=== PATIENT | female | born 1995 | race African-American/Black ===

== ENCOUNTER 2016-06-03 02:45 | Emergency (ER) | payer MEDICAID ==
[~2016-06-03] VITALS: Ht 160 cm; Wt 58.0 kg
[~2016-06-03 02:45] MED LIST: MACR100C2 PO; PERC5TAB12 PO
[2016-06-03 02:49] VITALS: BP 122/84; PULSE 91; RESP 18; TEMP 98.4; O2SAT 100
[2016-06-03] MEDS ORDERED: MORPHINE SULFATE 4 MG/ML INJ IV PUSH ONE (04:45)
[2016-06-03] MEDS ORDERED: ONDANSETRON HCL 4 MG/2 ML VIAL IV PUSH ONE (04:45)
[2016-06-03] MEDS ORDERED: SODIUM CHLOR 0.9% 1000 ML INJ 1,000 ML IV ONE (04:45)
[2016-06-03 04:50] LABS: AUTOMATED NEUTROPHIL # 2.5 TH/MM3 (1.8-7.7); BASOPHIL % 0.8 % (0.0-2.0); EOSINOPHIL % 0.7 % (0.0-4.0); HEMATOCRIT 36.1 % (35.0-46.0); HEMO FLAGS DIFF FINAL; LYMPHOCYTE # 2.1 TH/MM3 (1.0-4.8); MEAN CORPUSCULAR HEMOGLOBIN 28.6 PG (27.0-34.0); MEAN CORPUSCULAR HGB CONC 34.1 % (32.0-36.0); MONO % 6.7 % (0.0-8.0); NEUT % 49.8 % (16.0-70.0); PLATELET COUNT 241 TH/MM3 (150-450); RED CELL DISTRIBUTION WIDTH 13.1 % (11.6-17.2); RETIC % 1.3 % (0.4-3.0); REVIEW FLAG FINAL
[2016-06-03 05:04] LABS: BICARBONATE 25.8 MEQ/L (21.0-32.0); POTASSIUM 3.4 MEQ/L (3.5-5.1)
--- NOTE | 2016-06-03 05:10 | RADRPT ---
EXAM DATE/TIME: 06/03/2016 04:41 [place] COMPARISON: CHEST PA & LAT, April 24, 2016, 17:36. INDICATIONS : Chest pain. MEDICAL HISTORY : Sickle Cell disease. SURGICAL HISTORY : None. ENCOUNTER: Initial ACUITY: 1 day PAIN SCORE: 7/10 LOCATION: Bilateral chest FINDINGS: PA and lateral views of the chest demonstrate the lungs to be symmetrically aerated without evidence of mass, infiltrate or effusion. The cardiomediastinal contours are unremarkable. Osseous structure s are intact. CONCLUSION: No acute disease. Kenji Gaytan MD on June 03, 2016 at 5:08 Board Certified Radiologist. This report was verified electronically.
[2016-06-03 06:00] VITALS: BP 125/78; PULSE 84; RESP 18; O2SAT 100
[2016-06-03] MEDS ORDERED: oxyCODONE/ACETAMINOPHEN 5 MG/325 MG TAB PO ONE (06:30)
--- NOTE | 2016-06-03 06:45 | PD ---
HPI Chief Complaint: Sickle Cell Time Seen by Provider: 04:16 Travel History International Travel<30 days: No Contact w/Intl Traveler<30days: No Traveled to known affect area: No History of Present Illness HPI Patient is a 20-year-old female with history of sickle cell disease, who comes in complaining of pain to her left side as well as her arm and leg. She says the pain is typical of her sickle cell pain. She does not have a bracelet former, and does not have any pain medicine at home. She denies fever or chills. Does say she has some chest pain. PFSH Past Medical History Diminished Hearing: No Immunizations Current: Yes Sickle Cell Disease: Yes (Sickle Cell) ?: Not LMP: LAST WK : 0 Past Surgical History Surgical History: No Previous Surgery Social History Alcohol Use: No Tobacco Use: No (never) Substance Use: No Allergies-Medications (Allergen,Severity, Reaction): Coded Allergies: Toradol (Verified Allergy, Severe, SOB AND THROAT SWELLING, 06/03/16) Reported Meds & Prescriptions Reported Meds & Active Scripts Active Cipro (Ciprofloxacin HCl) 500 Mg Tab 500 Mg PO BID 5 Days Macrobid (Nitrofurantoin Monoh/Nitrofur Macro) 100 Mg Cap 100 Mg PO BID 5 Days Percocet (Oxycodone-Acetaminophen) 5-325 mg Tab 1 Tab PO Q6H PRN Percocet (Oxycodone-Acetaminophen) 5-325 mg Tab 1 Tab PO Q6H PRN Review of Systems Except as stated in HPI: all other systems reviewed are Neg General / Constitutional: No: Fever, Chills HENT: No: Headaches, Lightheadedness Cardiovascular: Positive: Chest Pain or Discomfort Respiratory: No: Cough, Shortness of Breath Gastrointestinal: No: Nausea, Vomiting, Abdominal Pain Musculoskeletal: Positive: Myalgias Skin: No Rash, No Change in Pigmentation Neurologic: No: Weakness, Dizziness Physical Exam Narrative GENERAL: Awake and alert in no acute distress. SKIN: Warm and dry. HEAD: Atraumatic. Normocephalic. EYES: Pupils equal and round. No scleral icterus. ENT: Mucous membranes pink and moist. NECK: Trachea midline. No JVD. CARDIOVASCULAR: Regular rate and rhythm. No murmur appreciated. RESPIRATORY: No accessory muscle use. Clear to auscultation. Breath sounds equal bilaterally. GASTROINTESTINAL: Abdomen soft, non-tender, nondistended. MUSCULOSKELETAL: No obvious deformities. No clubbing. No cyanosis. No edema. NEUROLOGICAL: Awake and alert. No obvious cranial nerve deficits. Motor grossly within normal limits. Normal speech. PSYCHIATRIC: Appropriate mood and affect; insight and judgment normal. Data Data Last Documented VS Vital Signs Date Time Temp Pulse Resp B/P Pulse Ox O2 Delivery O2 Flow Rate FiO2 06/03/16 06:00 84 18 125/78 100 Room Air 06/03/16 02:49 98.4 Orders Complete Blood Count With Diff (06/03/16 04:34) Basic Metabolic Panel (Bmp) (06/03/16 04:34) Ed Urine Pregnancytest Poc (06/03/16 04:34) Urinalysis - C+S If Indicated (06/03/16 04:34) Chest, Pa & Lat (06/03/16 ) Retic Count (06/03/16 04:34) Sodium Chlor 0.9% 1000 Ml Inj (Ns 1000 M (06/03/16 04:45) Ondansetron Inj (Zofran Inj) (06/03/16 04:45) Morphine Inj (Morphine Inj) (06/03/16 04:45) Oxycodone-Acetamin 5-325 Mg (Percocet (06/03/16 06:30) Urine Culture (06/03/16 06:40) Labs Laboratory Tests Test 06/03/16 06/03/16 04:30 06:40 White Blood Count 5.0 TH/MM3 Red Blood Count 4.30 MIL/MM3 Hemoglobin 12.3 GM/DL Hematocrit 36.1 % Mean Corpuscular Volume 84.0 FL Mean Corpuscular Hemoglobin 28.6 PG Mean Corpuscular Hemoglobin 34.1 % Concent Red Cell Distribution Width 13.1 % Platelet Count 241 TH/MM3 Mean Platelet Volume 8.2 FL Neutrophils (%) (Auto) 49.8 % Lymphocytes (%) (Auto) 42.0 % Monocytes (%) (Auto) 6.7 % Eosinophils (%) (Auto) 0.7 % Basophils (%) (Auto) 0.8 % Neutrophils # (Auto) 2.5 TH/MM3 Lymphocytes # (Auto) 2.1 TH/MM3 Monocytes # (Auto) 0.3 TH/MM3 Eosinophils # (Auto) 0.0 TH/MM3 Basophils # (Auto) 0.0 TH/MM3 CBC Comment DIFF FINAL Differential Comment Reticulocyte Count 1.3 % Absolute Reticulocyte Count 55.3 MIL/L Sodium Level 140 MEQ/L Potassium Level 3.4 MEQ/L Chloride Level 108 MEQ/L Carbon Dioxide Level 25.8 MEQ/L Anion Gap 6 MEQ/L Blood Urea Nitrogen 7 MG/DL Creatinine 0.68 MG/DL Estimat Glomerular Filtration 133 ML/MIN Rate Random Glucose 80 MG/DL Calcium Level 9.4 MG/DL Urine Color YELLOW Urine Turbidity HAZY Urine pH 6.0 Urine Specific [place] 1.014 Urine Protein NEG mg/dL Urine Glucose (UA) NEG mg/dL Urine Ketones NEG mg/dL Urine Occult Blood MOD Urine Nitrite NEG Urine Bilirubin NEG Urine Urobilinogen 2.0 MG/DL Urine Leukocyte Esterase LARGE Urine RBC 5 /hpf Urine WBC 15 /hpf Urine Squamous Epithelial 5 /hpf Cells Urine Amorphous Sediment RARE Urine Bacteria OCC /hpf Urine Mucus FEW /lpf Microscopic Urinalysis Comment CULTURE INDICATED MDM Medical Decision Making Medical Screen Exam Complete: Yes Emergency Medical Condition: Yes Medical Record Reviewed: Yes Differential Diagnosis Sickle cell crisis versus anemia versus electrolyte abnormality versus infection Narrative Course Patient is a 20-year-old female comes in complaining of sickle cell pain. Exam shows no acute abnormalities. IV established, labs sent. Labs are all within normal limits. Chest x-ray performed shows no acute abnormalities. Urinalysis is positive for infection. Patient given morphine as well as IV fluids. She reports some improvement of symptoms, however she says she is still having pain. Given second dose of morphine. Patient discharged home with prescription for a few Percocet. She is advised to obtain a bracelet former and follow-up with her doctor. Advised to return to the ED as needed for any worsening symptoms. Diagnosis Primary Impression: Sickle cell anemia Qualified Code: D57.00 - Hb-SS disease with crisis Patient Instructions: General Instructions, Sickle Cell Crisis (ED) Additional Instructions: Follow up with your doctors. Return to the ED as needed for any worsening symptoms. Scripts Ciprofloxacin (Cipro)500 Mg Lpb190 Mg PO BID 5 Days Ref 0 Prov:Kierra Del Cid MD 06/03/16 Nitrofurantoin Monohydrate Macrocrystals (Macrobid)100 Mg Pdr264 Mg PO BID 5 Days Ref 0 Prov:Kierra Del Cid MD 06/03/16 Oxycodone-Acetaminophen (Percocet)5-325 mg Tab1 Tab PO Q6H PRN (PAIN) #10 TAB Ref 0 Prov:Kierra Del Cid MD 06/03/16 Disposition: 01 DISCHARGE HOME Condition: Stable Kierra Del Cid MD Jun 03, 2016 06:45
[2016-06-03] MEDS ORDERED: PERC5TAB12 PO (06:48)
[2016-06-03 07:22] LABS: BACTERIA, URINE OCC /hpf; BLOOD, URINE MOD (NEG); COMMENT (UR) CULTURE INDICATED; CULTURE IF INDICATED CULTURE INDICATED; GLUCOSE,URINE NEG (NEG); KETONE, URINE NEG (NEG); MUCUS URINE FEW /lpf (OCC); NITRITE,URINE NEG (NEG); SQUAMOUS EPITHELIAL CELL URINE 5 /hpf (0-5); URINE COLOR YELLOW (YELLW/STRAW)
[2016-06-03] MEDS ORDERED: MACR100C2 PO (07:32)
[2016-06-03] MEDS ORDERED: CIPR-9 PO (07:36)
== END 2016-06-03 19:20 | disposition home or self-care (01) ==
LOC: NEPE 02:45
DX: D57.00 Hb-SS disease with crisis, unspecified (principal); R07.9 Chest pain, unspecified; R82.71 Bacteriuria
CPT/HCPCS: 71020; 80048; 81001; 85025; 85044; 87086; 96361; 96374; 96375; 99284; J2270; J2405; J7030

== ENCOUNTER 2016-06-16 21:07 | Emergency (ER) | payer MEDICAID ==
[~2016-06-16] VITALS: Ht 160 cm; Wt 58.0 kg
[~2016-06-16 21:07] MED LIST changes: +CIPR-9 PO
[2016-06-16 21:10] VITALS: BP 120/68; PULSE 113; RESP 15; TEMP 99.9; O2SAT 97
[2016-06-17] MEDS ORDERED: SODIUM CHLOR 0.9% 1000 ML INJ 1,000 ML IV ONE (00:05)
[2016-06-17] MEDS ORDERED: HYDROmorphone HCL PF 1 MG/ML VIAL IVS ONE (00:15)
[2016-06-17] MEDS ORDERED: SODIUM CHLORIDE 0.9% FLUSH 5 ML FLUSH IVF PRN (00:15)
[2016-06-17] MEDS ORDERED: ONDANSETRON HCL 4 MG/2 ML VIAL IVP ONE (00:15)
[2016-06-17 00:24] LABS: AUTOMATED NEUTROPHIL # 4.9 TH/MM3 (1.8-7.7); BASOPHIL % 0.5 % (0.0-2.0); EOSINOPHIL % 0.1 % (0.0-4.0); HEMATOCRIT 36.8 % (35.0-46.0); HEMO FLAGS DIFF FINAL; LYMPH % 4.5 % (9.0-44.0); LYMPHOCYTE # 0.3 TH/MM3 (1.0-4.8); MEAN CELL VOLUME 83.8 FL (80.0-100.0); MEAN CORPUSCULAR HEMOGLOBIN 28.9 PG (27.0-34.0); MEAN CORPUSCULAR HGB CONC 34.4 % (32.0-36.0); MONO % 7.3 % (0.0-8.0); NEUT % 87.6 % (16.0-70.0); PLATELET COUNT 280 TH/MM3 (150-450); RED BLOOD COUNT 4.39 MIL/MM3 (4.00-5.30); RED CELL DISTRIBUTION WIDTH 13.5 % (11.6-17.2); RETIC % 1.5 % (0.4-3.0); REVIEW FLAG FINAL; WHITE BLOOD COUNT 5.6 TH/MM3 (4.0-11.0)
[2016-06-17 00:44] LABS: ALT (GPT) 15 U/L (9-42); ANION GAP 6 MEQ/L (5-15); AST (GOT) 9 U/L (16-38); BICARBONATE 29.2 MEQ/L (21.0-32.0); BLOOD UREA NITROGEN 5 MG/DL (7-18); CHLORIDE 106 MEQ/L (98-107); GLOMERULAR FILTRATION RATE 125 ML/MIN (>89); POTASSIUM 4.1 MEQ/L (3.5-5.1); SODIUM (NA) 141 MEQ/L (136-145)
[2016-06-17 00:46] LABS: ALKALINE PHOSPHATASE 74 U/L (45-117); TOTAL BILIRUBIN ADULT 0.4 MG/DL (0.2-1.0)
--- NOTE | 2016-06-17 01:27 | PD ---
HPI Chief Complaint: Sickle Cell Time Seen by Provider: 00:04 Travel History International Travel<30 days: No Contact w/Intl Traveler<30days: No Traveled to known affect area: No History of Present Illness HPI This is a 20-year-old female who reports that she has sickle cell disease who comes into the emergency department saying her body is hurting all over, her chest or arms and her legs, typical of her sickle cell crises in the past. Her pain is been going on for 1 day. Her pain is severe. She was told by a market development executive elsewhere that she has sickle cell disease. PFSH Past Medical History Diminished Hearing: No Immunizations Current: Yes Sickle Cell Disease: Yes (Sickle Cell) Tetanus Vaccination: Never Vaccinated Influenza Vaccination: Yes ?: Not LMP: 06-01-16 : 0 Past Surgical History Surgical History: No Previous Surgery Social History Alcohol Use: No Tobacco Use: No (never) Substance Use: No Allergies-Medications (Allergen,Severity, Reaction): Coded Allergies: Toradol (Verified Allergy, Severe, SOB AND THROAT SWELLING, 06/16/16) Reported Meds & Prescriptions Reported Meds & Active Scripts Active Cipro (Ciprofloxacin HCl) 500 Mg Tab 500 Mg PO BID 5 Days Percocet (Oxycodone-Acetaminophen) 5-325 mg Tab 1 Tab PO Q6H PRN Percocet (Oxycodone-Acetaminophen) 5-325 mg Tab 1 Tab PO Q6H PRN Review of Systems Except as stated in HPI: all other systems reviewed are Neg Physical Exam Narrative GENERAL: Well-nourished, well-developed patient. SKIN: Warm and dry. HEAD: Normocephalic. EYES: No scleral icterus. No injection or drainage. NECK: Supple, trachea midline. CARDIOVASCULAR: Regular rate and rhythm without murmurs. RESPIRATORY: Breath sounds equal bilaterally. No accessory muscle use. GASTROINTESTINAL: Abdomen soft, non-tender, nondistended. MUSCULOSKELETAL: No cyanosis, or edema. Data Data Last Documented VS Vital Signs Date Time Temp Pulse Resp B/P Pulse Ox O2 Delivery O2 Flow Rate FiO2 06/16/16 21:10 99.9 113 15 120/68 97 Room Air Orders Complete Blood Count With Diff (06/17/16 00:05) Comprehensive Metabolic Panel (06/17/16 00:05) Retic Count (06/17/16 00:05) Ecg Monitoring (06/17/16 00:05) Iv Access Insert/Monitor (06/17/16 00:05) Oximetry (06/17/16 00:05) Ondansetron Inj (Zofran Inj) (06/17/16 00:15) Sodium Chloride 0.9% Flush (Ns Flush) (06/17/16 00:15) Sodium Chlor 0.9% 1000 Ml Inj (Ns 1000 M (06/17/16 00:05) Hydromorphone Pf Inj (Dilaudid Pf Inj) (06/17/16 00:15) Labs Laboratory Tests Test 06/17/16 00:09 White Blood Count 5.6 TH/MM3 Red Blood Count 4.39 MIL/MM3 Hemoglobin 12.7 GM/DL Hematocrit 36.8 % Mean Corpuscular Volume 83.8 FL Mean Corpuscular Hemoglobin 28.9 PG Mean Corpuscular Hemoglobin 34.4 % Concent Red Cell Distribution Width 13.5 % Platelet Count 280 TH/MM3 Mean Platelet Volume 8.0 FL Neutrophils (%) (Auto) 87.6 % Lymphocytes (%) (Auto) 4.5 % Monocytes (%) (Auto) 7.3 % Eosinophils (%) (Auto) 0.1 % Basophils (%) (Auto) 0.5 % Neutrophils # (Auto) 4.9 TH/MM3 Lymphocytes # (Auto) 0.3 TH/MM3 Monocytes # (Auto) 0.4 TH/MM3 Eosinophils # (Auto) 0.0 TH/MM3 Basophils # (Auto) 0.0 TH/MM3 CBC Comment DIFF FINAL Differential Comment Reticulocyte Count 1.5 % Absolute Reticulocyte Count 65.7 MIL/L Sodium Level 141 MEQ/L Potassium Level 4.1 MEQ/L Chloride Level 106 MEQ/L Carbon Dioxide Level 29.2 MEQ/L Anion Gap 6 MEQ/L Blood Urea Nitrogen 5 MG/DL Creatinine 0.72 MG/DL Estimat Glomerular Filtration 125 ML/MIN Rate Random Glucose 83 MG/DL Calcium Level 9.2 MG/DL Total Bilirubin 0.4 MG/DL Aspartate Amino Transf 9 U/L (AST/SGOT) Alanine Aminotransferase 15 U/L (ALT/SGPT) Alkaline Phosphatase 74 U/L Total Protein 7.2 GM/DL Albumin 3.9 GM/DL MDM Medical Decision Making Medical Screen Exam Complete: Yes Emergency Medical Condition: Yes Interpretation(s) Hemoglobin is normal hematocrit is normal Sickle cell screen positive 10/17/15 Hemoglobin Electrophoresis Review: Hb A and Hb S are present consistent with Sickle cell trait. Differential Diagnosis Sickle cell anemia, viral syndrome, influenza Narrative Course This is a 20-year-old female who presents with body aches and pain all over and not feeling well. She has been seen 12 times in the emergency department in the past year and reportedly has been told she has sickle cell anemia and she has been treated multiple times. On October 16 the patient had hemoglobin studies performed which confirmed that the patient in fact has sickle cell trait and not sickle cell anemia. Here she was placed on a monitor. She was given IV fluids. She does have mild tachycardia and a low-grade fever which may suggest a viral infection. She is otherwise nontoxic appearing and her blood work is reassuring. I clearly explained to the patient that she does not have sickle cell disease. Patient will be discharged home. Diagnosis Primary Impression: Sickle cell trait Additional Impression: Viral syndrome Patient Instructions: General Instructions Additional Instructions: If you develop severe chest pain, shortness of breath, sweating, lightheadedness , dizziness or difficulty breathing return to the emergency department immediately. Followup with your primary care physician in 2-3 days if your symptoms are not resolved. Med/Other Pt SpecificInfo: No Change to Meds Disposition: 01 DISCHARGE HOME Condition: Stable Shana Pearson MD Jun 17, 2016 01:26
[2016-06-17 01:39] VITALS: BP 127/80
== END 2016-06-17 01:50 | disposition home or self-care (01) ==
LOC: NEPC 21:07
DX: D57.3 Sickle-cell trait (principal); B34.9 Viral infection, unspecified
CPT/HCPCS: 80053; 85025; 85044; 96374; 96375; 99284; J1170; J2405; J7030

== ENCOUNTER 2017-04-06 10:09 | Emergency (ER) | payer SELFPAY ==
[~2017-04-06 10:09] MED LIST changes: -MACR100C2 PO
== END 2017-04-06 10:17 | disposition left against medical advice (07) ==
LOC: NED 10:09
DX: Z53.21 Procedure and treatment not carried out due to patient leaving prior to being seen by health care provider (principal)
CPT/HCPCS: 99281

== ENCOUNTER 2017-07-29 03:36 | Emergency (ER) | payer SELFPAY ==
[~2017-07-29] VITALS: Ht 160 cm; Wt 56.8 kg
[2017-07-29 03:49] VITALS: BP 109/71; PULSE 71; RESP 16; TEMP 97.8; O2SAT 100
== END 2017-07-29 06:00 | disposition left against medical advice (07) ==
LOC: NED 05:55
DX: H57.9 Unspecified disorder of eye and adnexa (principal)
CPT/HCPCS: 99281

== ENCOUNTER 2017-08-29 14:58 | Emergency (ER) | payer SELFPAY ==
[~2017-08-29] VITALS: Ht 160 cm; Wt 56.8 kg
[~2017-08-29 14:58] MED LIST changes: -CIPR-9 PO
[2017-08-29 15:50] VITALS: BP 122/68; PULSE 76; RESP 18; TEMP 98.8; O2SAT 100
[2017-08-29 17:30] LABS: BILIRUBIN, URINE NEG (NEG); BLOOD, URINE TRACE (NEG); GLUCOSE,URINE NEG (NEG); KETONE, URINE NEG (NEG); MUCUS URINE FEW /lpf (OCC); NITRITE,URINE NEG (NEG); SQUAMOUS EPITHELIAL CELL URINE 1 /hpf (0-5); URINE LEUKOCYTE ESTERASE TRACE (NEG)
[2017-08-29 17:32] LABS: URINE COLOR LIGHT-RED (YELLW/STRAW)
--- NOTE | 2017-08-29 19:06 | PD ---
HPI Chief Complaint: [facility] Nurse Problem/Complaint Time Seen by Provider: 18:49 Travel History International Travel<30 days: Yes Contact w/Intl Traveler<30days: Yes Name of Country Traveled to: [facility] Traveled to known affect area: No History of Present Illness HPI 21-year-old female presents emergency department for evaluation of vaginal discharge and bleeding. Patient states that her last menstrual cycle was 2 weeks ago. She began having vaginal bleeding over the last 2-3 days. She has a thick yellow-white discharge. She has mild pelvic pain. No urinary symptoms. No fever or chills. Patient states that she does not have sexual intercourse with men, only women. Denies any chance of . PFSH Past Medical History Medical History: Denies Significant Hx Diminished Hearing: No Immunizations Current: Yes Sickle Cell Disease: Yes (Sickle Cell) Tetanus Vaccination: < 5 Years Influenza Vaccination: Yes ?: Not LMP: 2 weeks ago : 0 Para: 0 Miscarriage: 0 : 0 Past Surgical History Surgical History: No Previous Surgery Social History Alcohol Use: Yes (occassonally) Tobacco Use: No (never) Substance Use: No Allergies-Medications (Allergen,Severity, Reaction): Coded Allergies: ketorolac (Unverified Allergy, Severe, SOB AND THROAT SWELLING, 08/29/17) Reported Meds & Prescriptions Reported Meds & Active Scripts Active No Active Prescriptions or Reported Medications Review of Systems Except as stated in HPI: all other systems reviewed are Neg Physical Exam Narrative GENERAL: Well-nourished, well-developed female patient in no acute distress SKIN: Focused skin assessment warm/dry. HEAD: Normocephalic. EYES: No scleral icterus. No injection or drainage. NECK: Supple, trachea midline. No JVD or lymphadenopathy. CARDIOVASCULAR: Regular rate and rhythm without murmurs, gallops, or rubs. RESPIRATORY: Breath sounds equal bilaterally. No accessory muscle use. GASTROINTESTINAL: Abdomen soft, nondistended. Mild suprapubic tenderness. No guarding. GENITOURINARY: Normal external genitalia without lesions or erythema. Vaginal vault with brown red blood and a yellow-white discharge. Cervical os was closed with same drainage. cervical motion tenderness. Uterus nontender and nonenlarged. Bilateral adnexa nontender without masses. MUSCULOSKELETAL: No cyanosis, or edema. BACK: Nontender without obvious deformity. No CVA tenderness. Data Data Last Documented VS Vital Signs Date Time Temp Pulse Resp B/P (MAP) Pulse Ox O2 Delivery O2 Flow Rate FiO2 08/29/17 15:50 98.8 76 18 122/68 (86) 100 Orders Orders Complete Blood Count With Diff (08/29/17 15:52) Comprehensive Metabolic Panel (08/29/17 15:52) Urinalysis - C+S If Indicated (08/29/17 15:52) Ed Urine Pregnancytest Poc (08/29/17 15:52) Wet Prep Profile (08/29/17 19:05) Gc And Chlamydia Pcr (08/29/17 19:05) Ceftriaxone Inj (Rocephin Inj) (08/29/17 20:15) Lidocaine 1% Inj (50 Ml) (Xylocaine 1% I (08/29/17 20:15) Metronidazole (Flagyl) (08/29/17 20:15) Lidocaine Pf 1% Inj (Xylocaine-Mpf 1% In (08/29/17 20:10) Azithromycin (Zithromax) (08/29/17 20:30) Ed Discharge Order (08/29/17 20:34) Labs Laboratory Tests Test 08/29/17 17:07 08/29/17 18:40 08/29/17 19:05 Urine Color LIGHT-RED Urine Turbidity CLEAR Urine pH 6.0 Urine Specific [place] 1.018 Urine Protein NEG mg/dL Urine Glucose (UA) NEG mg/dL Urine Ketones NEG mg/dL Urine Occult Blood TRACE Urine Nitrite NEG Urine Bilirubin NEG Urine Urobilinogen LESS THAN 2.0 MG/DL Urine Leukocyte Esterase TRACE Urine RBC 1 /hpf Urine WBC LESS THAN 1 /hpf Urine Squamous Epithelial Cells 1 /hpf Urine Mucus FEW /lpf Microscopic Urinalysis Comment CULT NOT INDICATED White Blood Count 4.6 TH/MM3 Red Blood Count 4.66 MIL/MM3 Hemoglobin 13.4 GM/DL Hematocrit 40.2 % Mean Corpuscular Volume 86.2 FL Mean Corpuscular Hemoglobin 28.7 PG Mean Corpuscular Hemoglobin Concent 33.3 % Red Cell Distribution Width 13.3 % Platelet Count 303 TH/MM3 Mean Platelet Volume 7.7 FL Neutrophils (%) (Auto) 53.5 % Lymphocytes (%) (Auto) 37.8 % Monocytes (%) (Auto) 8.2 % Eosinophils (%) (Auto) 0.2 % Basophils (%) (Auto) 0.3 % Neutrophils # (Auto) 2.5 TH/MM3 Lymphocytes # (Auto) 1.7 TH/MM3 Monocytes # (Auto) 0.4 TH/MM3 Eosinophils # (Auto) 0.0 TH/MM3 Basophils # (Auto) 0.0 TH/MM3 CBC Comment DIFF FINAL Differential Comment Blood Urea Nitrogen 9 MG/DL Creatinine 0.78 MG/DL Random Glucose 60 MG/DL Total Protein 7.6 GM/DL Albumin 3.8 GM/DL Calcium Level 9.5 MG/DL Alkaline Phosphatase 72 U/L Aspartate Amino Transf (AST/SGOT) 13 U/L Alanine Aminotransferase (ALT/SGPT) 14 U/L Total Bilirubin 0.4 MG/DL Sodium Level 141 MEQ/L Potassium Level 4.0 MEQ/L Chloride Level 108 MEQ/L Carbon Dioxide Level 28.8 MEQ/L Anion Gap 4 MEQ/L Estimat Glomerular Filtration Rate 113 ML/MIN Clue Cells (Wet Prep) NONE SEEN Vaginal Trichomonas (Wet Prep) NONE SEEN Vaginal Yeast (Wet Prep) NONE SEEN Chlamydia trachomatis DNA (PCR) NOT DETECTED Neisseria gonorrhoeae DNA (PCR) NOT DETECTED MDM Medical Decision Making Medical Screen Exam Complete: Yes Emergency Medical Condition: Yes Medical Record Reviewed: Yes Differential Diagnosis STD versus PID versus BV versus UTI Narrative Course 21-year-old female presents emergency department for evaluation of pelvic pain with associated vaginal discharge and bleeding. Patient appears well without distress. She does have cervical motion tenderness with a thick yellow white discharge as well as a brown red blood in the vaginal vault. Wet prep is negative. GC chlamydia pending. Patient will be treated empirically. She is counseled on safe sex practices whether they are with male or female. She agrees to return immediately with any acute worsening symptoms. Diagnosis Primary Impression: Pelvic pain in female Additional Impression: Vaginal discharge Referrals: Stave Jointer Primary Care Physician Patient Instructions: General Instructions, Vaginal Discharge (ED) Additional Instructions: Follow-up with a production metal sprayer Return immediately with any acute worsening symptoms Med/Other Pt SpecificInfo: No Change to Meds Scripts No Active Prescriptions or Reported Meds Disposition: 01 DISCHARGE HOME Condition: Stable July Darden YAS Aug 29, 2017 19:06
[2017-08-29 19:19] LABS: AUTOMATED NEUTROPHIL # 2.5 TH/MM3 (1.8-7.7); BASOPHIL % 0.3 % (0.0-2.0); EOSINOPHIL % 0.2 % (0.0-4.0); HEMATOCRIT 40.2 % (35.0-46.0); HEMOGLOBIN 13.4 GM/DL (11.6-15.3); LYMPH % 37.8 % (9.0-44.0); LYMPHOCYTE # 1.7 TH/MM3 (1.0-4.8); MEAN CELL VOLUME 86.2 FL (80.0-100.0); MEAN CORPUSCULAR HEMOGLOBIN 28.7 PG (27.0-34.0); MEAN CORPUSCULAR HGB CONC 33.3 % (32.0-36.0); MEAN PLATELET VOLUME 7.7 FL (7.0-11.0); MONO % 8.2 % (0.0-8.0); MONOCYTE # 0.4 TH/MM3 (0-0.9); NEUT % 53.5 % (16.0-70.0); PLATELET COUNT 303 TH/MM3 (150-450); RED BLOOD COUNT 4.66 MIL/MM3 (4.00-5.30); RED CELL DISTRIBUTION WIDTH 13.3 % (11.6-17.2); WHITE BLOOD COUNT 4.6 TH/MM3 (4.0-11.0)
[2017-08-29 19:27] LABS: ALBUMIN 3.8 GM/DL (3.4-5.0); AST (GOT) 13 U/L (15-37); BICARBONATE 28.8 MEQ/L (21.0-32.0); BLOOD UREA NITROGEN 9 MG/DL (7-18); CALCIUM 9.5 MG/DL (8.5-10.1); CHLORIDE 108 MEQ/L (98-107); CREATININE 0.78 MG/DL (0.50-1.00); GLOMERULAR FILTRATION RATE 113 ML/MIN (>89); GLUCOSE,RANDOM 60 MG/DL (74-106); SODIUM (NA) 141 MEQ/L (136-145)
[2017-08-29 19:28] LABS: ALT (GPT) 14 U/L (10-53)
[2017-08-29 19:30] LABS: ALKALINE PHOSPHATASE 72 U/L (45-117); TOTAL BILIRUBIN ADULT 0.4 MG/DL (0.2-1.0); TOTAL PROTEIN 7.6 GM/DL (6.4-8.2)
[2017-08-29] MEDS ORDERED: LIDOCAINE HCL 1% PF 30 ML VIAL ONE (20:10)
[2017-08-29] MEDS ORDERED: metroNIDAZOLE 500 MG TAB PO ONE (20:15)
[2017-08-29] MEDS ORDERED: LIDOCAINE HCL 1% 50 ML VIAL XX ONE (20:15)
[2017-08-29] MEDS ORDERED: AZITHROMYCIN PWD FOR SUSP 1 GM PACKET PO ONE (20:15)
[2017-08-29] MEDS ORDERED: cefTRIAXone 250 MG VIAL IM ONE (20:15)
[2017-08-29] MEDS ORDERED: AZITHROMYCIN 250 MG TAB PO ONE (20:30)
== END 2017-08-29 20:57 | disposition home or self-care (01) ==
LOC: NEPD 14:58
DX: R10.2 Pelvic and perineal pain (principal); N89.8 Other specified noninflammatory disorders of vagina
CPT/HCPCS: 80053; 81001; 84703; 85025; 87210; 87491; 87591; 96372; 99283; J0696

== ENCOUNTER 2017-10-31 02:43 | Inpatient (IN) | payer SELFPAY ==
[~2017-10-31] VITALS: Ht 162.6 cm; Wt 60.0 kg
[2017-10-31 03:03] VITALS: BP 119/70; PULSE 116; RESP 16; TEMP 97; O2SAT 99
--- NOTE | 2017-10-31 03:04 | PD ---
HPI Chief Complaint: BA Time Seen by Provider: 03:00 Travel History International Travel<30 days: No Contact w/Intl Traveler<30days: No Traveled to known affect area: No History of Present Illness HPI Examined in the presence of a female nurse. 22-year-old female with history of sickle cell trait presents under [place] act initiated by the [employer]. According to her paperwork, "left a suicidal note to call her friends and family saying goodbye. Subject was later found by roommates passed out in the parking lot. Subject was found with a knife and said she was attempting to stab herself in the stomach." Patient reports that she has been depressed and feeling suicidal since June. No obvious aggravating or relieving factors. Symptoms are moderate. She denies doing anything to hurt herself but she was considering stopping herself this evening. Denies any drug or alcohol use, homicidal ideation, auditory or visual hallucinations. No other complaints at this time. PFSH Past Medical History Diminished Hearing: No Immunizations Current: Yes Sickle Cell Disease: Yes (Sickle Cell) : 0 Para: 0 Miscarriage: 0 : 0 Social History Alcohol Use: Yes (occassonally) Tobacco Use: No (never) Substance Use: No Allergies-Medications (Allergen,Severity, Reaction): Coded Allergies: ketorolac (Unverified Allergy, Severe, SOB AND THROAT SWELLING, 08/29/17) Reported Meds & Prescriptions Reported Meds & Active Scripts Active No Active Prescriptions or Reported Medications Review of Systems Except as stated in HPI: all other systems reviewed are Neg Physical Exam Narrative GENERAL: Well-developed well-nourished female no acute distress. SKIN: Warm and dry. HEAD: Atraumatic. Normocephalic. EYES: Pupils equal and round. No scleral icterus. No injection or drainage. ENT: No nasal bleeding or discharge. Mucous membranes pink and moist. NECK: Trachea midline. No JVD. CARDIOVASCULAR: Regular rate and rhythm. No murmur appreciated. RESPIRATORY: No accessory muscle use. Clear to auscultation. Breath sounds equal bilaterally. GASTROINTESTINAL: Abdomen soft, non-tender, nondistended. Hepatic and splenic margins not palpable. MUSCULOSKELETAL: No obvious deformities. No clubbing. No cyanosis. No edema. NEUROLOGICAL: Awake and alert. No obvious cranial nerve deficits. Motor grossly within normal limits. Normal speech. PSYCHIATRIC: Flat affect. Insight and judgment appear reasonable. Data Data Last Documented VS Vital Signs Date Time Temp Pulse Resp B/P (MAP) Pulse Ox O2 Delivery O2 Flow Rate FiO2 10/31/17 03:14 16 10/31/17 03:03 97.0 116 119/70 (86) 99 Orders Orders Complete Blood Count With Diff (10/31/17 03:01) Comprehensive Metabolic Panel (10/31/17 03:01) Thyroid Stimulating Hormone (10/31/17 03:01) Psych Screen (10/31/17 03:01) Drug Screen, Random Urine (10/31/17 03:01) Alcohol (Ethanol) (10/31/17 03:01) Salicylates (Aspirin) (10/31/17 03:01) Tylenol (Acetaminophen) (10/31/17 03:01) Ed Urine Pregnancytest Poc (10/31/17 03:01) Labs Laboratory Tests Test 10/31/17 03:05 10/31/17 03:10 White Blood Count 5.4 TH/MM3 Red Blood Count 4.59 MIL/MM3 Hemoglobin 13.3 GM/DL Hematocrit 38.9 % Mean Corpuscular Volume 84.8 FL Mean Corpuscular Hemoglobin 29.0 PG Mean Corpuscular Hemoglobin Concent 34.2 % Red Cell Distribution Width 13.2 % Platelet Count 314 TH/MM3 Mean Platelet Volume 7.8 FL Neutrophils (%) (Auto) 46.5 % Lymphocytes (%) (Auto) 42.4 % Monocytes (%) (Auto) 10.6 % Eosinophils (%) (Auto) 0.0 % Basophils (%) (Auto) 0.5 % Neutrophils # (Auto) 2.5 TH/MM3 Lymphocytes # (Auto) 2.3 TH/MM3 Monocytes # (Auto) 0.6 TH/MM3 Eosinophils # (Auto) 0.0 TH/MM3 Basophils # (Auto) 0.0 TH/MM3 CBC Comment DIFF FINAL Differential Comment Blood Urea Nitrogen 9 MG/DL Creatinine 0.74 MG/DL Random Glucose 76 MG/DL Total Protein 7.8 GM/DL Albumin 4.0 GM/DL Calcium Level 9.2 MG/DL Alkaline Phosphatase 81 U/L Aspartate Amino Transf (AST/SGOT) 11 U/L Alanine Aminotransferase (ALT/SGPT) 18 U/L Total Bilirubin 0.7 MG/DL Sodium Level 140 MEQ/L Potassium Level 3.3 MEQ/L Chloride Level 108 MEQ/L Carbon Dioxide Level 21.7 MEQ/L Anion Gap 10 MEQ/L Estimat Glomerular Filtration Rate 119 ML/MIN Thyroid Stimulating Hormone 3rd Gen 0.966 uIU/ML Salicylates Level LESS THAN 1.7 MG/DL Ethyl Alcohol Level LESS THAN 3 MG/DL Urine Opiates Screen NEG Urine Barbiturates Screen NEG Urine Amphetamines Screen NEG Urine Benzodiazepines Screen NEG Urine Cocaine Screen NEG Urine Cannabinoids Screen POS MDM Medical Decision Making Medical Screen Exam Complete: Yes Emergency Medical Condition: Yes Medical Record Reviewed: Yes Differential Diagnosis Major depressive disorder, depressive disorder not otherwise specified, acute psychosis, substance-induced mood disorder, adjustment reaction Narrative Course 22-year-old female presents under Parsons act for psychiatric evaluation. Mental health screening discussed with the patient. Psychiatric screen ordered. Lab work reveals a potassium of 3.3 otherwise unremarkable. Drug screen positive for cannabinoids. The patient is medically cleared. Diagnosis Primary Impression: Medical clearance for psychiatric admission Scripts No Active Prescriptions or Reported Meds Itz Carlos Oct 31, 2017 03:04
[2017-10-31 03:19] LABS: AUTOMATED NEUTROPHIL # 2.5 TH/MM3 (1.8-7.7); BASOPHIL % 0.5 % (0.0-2.0); HEMATOCRIT 38.9 % (35.0-46.0); HEMOGLOBIN 13.3 GM/DL (11.6-15.3); LYMPH % 42.4 % (9.0-44.0); LYMPHOCYTE # 2.3 TH/MM3 (1.0-4.8); MEAN CELL VOLUME 84.8 FL (80.0-100.0); MEAN CORPUSCULAR HGB CONC 34.2 % (32.0-36.0); MEAN PLATELET VOLUME 7.8 FL (7.0-11.0); MONO % 10.6 % (0.0-8.0); MONOCYTE # 0.6 TH/MM3 (0-0.9); NEUT % 46.5 % (16.0-70.0); PLATELET COUNT 314 TH/MM3 (150-450); RED BLOOD COUNT 4.59 MIL/MM3 (4.00-5.30); RED CELL DISTRIBUTION WIDTH 13.2 % (11.6-17.2); WHITE BLOOD COUNT 5.4 TH/MM3 (4.0-11.0)
[2017-10-31 03:39] LABS: ALT (GPT) 18 U/L (10-53); AST (GOT) 11 U/L (15-37); BICARBONATE 21.7 MEQ/L (21.0-32.0); BLOOD UREA NITROGEN 9 MG/DL (7-18); CALCIUM 9.2 MG/DL (8.5-10.1); CHLORIDE 108 MEQ/L (98-107); CREATININE 0.74 MG/DL (0.50-1.00); GLOMERULAR FILTRATION RATE 119 ML/MIN (>89); GLUCOSE,RANDOM 76 MG/DL (74-106); SODIUM (NA) 140 MEQ/L (136-145)
[2017-10-31 03:50] LABS: ALKALINE PHOSPHATASE 81 U/L (45-117); TOTAL BILIRUBIN ADULT 0.7 MG/DL (0.2-1.0); TOTAL PROTEIN 7.8 GM/DL (6.4-8.2)
[2017-10-31 03:58] LABS: ACETAMINOPHEN LESS THAN 2.0 MCG/ML (10.0-30.0)
[2017-10-31] MEDS ORDERED: POTASSIUM CHLORIDE 20 MEQ CONTROLLED RELEASE TAB PO ONE (04:00)
[2017-10-31 04:40] VITALS: BP 106/76; PULSE 95; RESP 16; O2SAT 100
[2017-10-31] MEDS ORDERED: traMADol HCL 50 MG TAB PO ONE (04:45)
[2017-10-31] MEDS ORDERED: NICOTINE 21 MG/24 HR PATCH T-DERMAL SCH (10:15)
[2017-10-31] MEDS ORDERED: LORazepam 1 MG TAB PO PRN ×2 (10:15)
[2017-10-31] MEDS ORDERED: MAGNESIUM HYDROXIDE SUSP 30 ML CUP PO PRN ×2 (10:15)
[2017-10-31] MEDS ORDERED: LORazepam 0.5 MG TAB PO PRN ×2 (10:15)
[2017-10-31] MEDS ORDERED: LORazepam 2 MG/ML VIAL IM PRN ×4 (10:15)
[2017-10-31] MEDS ORDERED: ACETAMINOPHEN 325 MG TAB PO PRN ×2 (10:15)
[2017-10-31] MEDS ORDERED: ALUMINUM/MAGNESIUM/SIMETH 30 ML CUP PO PRN ×2 (10:15)
[2017-10-31 12:02] VITALS: BP 108/73; PULSE 82; RESP 18; TEMP 97.6; O2SAT 99
--- NOTE | 2017-10-31 14:36 | HHI.HP ---
Provisional Diagnosis Admission Date Oct 31, 2017 at 10:10 [place] I. Adjustment disorder with depressed mood vs major depressive disorder, single episode, severe, without psychosis [place] II. Unspecified personality disorder, cluster B traits identified [place] III. Sickle cell anemia [place] IV. Interpersonal conflicts with significant mother, history of self inflicting harm [place] V. 40 Certification of Person's Competence To Provide Express and Informed Consent I have personally examined Leia Alcaraz , a person being served at [facility] on, Oct 31, 2017 14:14. Express and informed consent means consent voluntarily given in writing, by a competent person, after sufficient explanation and disclosure of the subject matter involved to enable the person to make a knowing and willful decision without any element of force, fraud, deceit, duress, or other form of constraint or coercion. This person is 18 years of age or older, is not now known to be incompetent to consent to treatment with a guardian advocate, and does not have a health care surrogate or proxy currently making medical treatment decisions. I have found this person to be one of the following: [] Competent to provide express and informed consent, as defined above, for voluntary admission to this facility and is competent to provide express and informed consent for treatment. He/she has the consistent capacity to make well reasoned, willful, and knowing decisions concerning his or her medical or mental health treatment. The person fully and consistently understands the purpose of the admission for examination/placement and is fully capable of personally exercising all rights assured [place] Incompetent to provide express and informed consent to voluntary admission, and this is incompetent to provide express and informed consent to treatment. The person must be transferred to involuntary status and a petition for a guardian advocate filed with the Circuit Court. [x] Refusing to provide express and informed consent to voluntary admission but is competent to provide express and informed consent for treatment. The person must be discharged or transferred to involuntary status. Form shall be completed within 24 hours of a person's arrival at the receiving facility and filed in the clinical record of each person: 1. Admitted on a voluntary basis 2. Permitted to provide express and informed consent to his/her own treatment 3. Allowed to transfer from involuntary to voluntary status 4. Prior to permitting a person to consent to his or her own treatment after having been previously found incompetent to consent to treatment. History of Present Illness Capacity: Has Capacity HPI The patient is a 22-year-old -[place] woman, domiciled with a roommate in [place], college student, employed in a [employer], without no previous psychiatric diagnosis, no previous suicide attempts, no previous psychiatric hospitalizations, she does have history of self cutting behavior without SI in her early adolescence, with medical history of sickle cell trait presents under [place] act initiated by the [employer]. According to her paperwork, "left a suicidal note to call her friends and family saying goodbye. Subject was later found by roommates passed out in the parking lot. Subject was found with a knife and said she was attempting to stab herself in the stomach." Patient reports that she has been depressed and feeling suicidal since June. No obvious aggravating or relieving factors. Symptoms are moderate. She denies doing anything to hurt herself but she was considering stopping herself this evening. Denies any drug or alcohol use, homicidal ideation, auditory or visual hallucinations. No other complaints at this time. EMR reviewed. Suicide note also read. no collateral available at this moment. On psychiatric evaluation today the patient seems to be quite fragile, vulnerable, profusely crying. Patient reports that she has been very depressed in the last months. She says that since May she has been struggling with sense of hopelessness, helplessness, lack of motivation, poor appetite, poor sleep, and thoughts of harming herself. She says that she has history of self harming in the past without suicidal intentions just to release stress. She says that yesterday she had an argument with her girlfriend, she found out that her girlfriend has been cheating on her and at the same time has been talking about her and against her with her friend yesterday when she found out she felt betrayed "and abandonment and I just wanted to kill myself". Patient reports that she has been stressed with school classes, with her job, she feels that her family in [place] is no very supportive with her "and rather than help me they tend to punish me and blame me for everything". She also reports that there is no strong support for the copeland community in [facility] "and I really felt that I wanted to yesterday". The patient is logical, coherent and relevant. A little bit oppositional and irritable. But no paranoia, no loosening of associations, no ideas of reference, are present. She is oriented 3. No fluctuation of consciousness, no attention deficit he are present. The patient reports occasional use of cannabis, denies other illicit drugs and alcohol. Review of Systems Constitutional: DENIES: Diaphoretic episodes, Fatigue, Fever, Weight gain, Weight loss, Chills, Dizziness, Change in appetite, Night Sweats Endocrine: DENIES: Abnorml menstrual pattern, Heat/cold intolerance, Polydipsia , Polyuria, Polyphagia Eyes: DENIES: Blurred vision, Diplopia, Eye inflammation, Eye pain, Vision loss , Photosensitivity, Double Vision Ears, nose, mouth, throat: DENIES: Tinnitus, Hearing loss, Vertigo, Nasal discharge, Oral lesions, Throat pain, Hoarseness, Ear Pain, Running Nose, Epistaxis, Sinus Pain, Toothache, Odynophagia Respiratory: DENIES: Apneas, Cough, Snoring, Wheezing, Hemoptysis, Sputum production, Shortness of breath Cardiovascular: DENIES: Chest pain, Palpitations, Syncope, Dyspnea on Exertion , PND, Lower Extremity Edema, Orthopnea, Claudication Gastrointestinal: DENIES: Abdominal pain, Black stools, Bloody stools, Constipation, Diarrhea, Nausea, Vomiting, Difficulty Swallowing, Anorexia Genitourinary: DENIES: Abnormal vaginal bleeding, Dysmenorrhea, Dyspareunia, Sexual dysfunction, Urinary frequency, Urinary incontinence, Urgency, Hematuria , Dysuria, Nocturia, Vaginal discharge Musculoskeletal: DENIES: Joint pain, Muscle aches, Stiffness, Joint Swelling, Back pain, Neck pain Integumentary: DENIES: Abnormal pigmentation, Pruritus, Rash, Nail changes, Breast masses, Breast skin changes, Nipple discharge Hematologic/lymphatic: DENIES: Bruising, Lymphadenopathy Immunologic/allergic: DENIES: Eczema, Urticaria Neurologic: DENIES: Abnormal gait, Headache, Localized weakness, Paresthesias, Seizures, Speech Problems, Tremor, Poor Balance Psychiatric: COMPLAINS OF: Depression, Suicidal Ideation, DENIES: Anxiety, Confusion, Mood changes, Hallucinations, Agitation, Homicidal Ideation, Delusions Substance Abuse History Drugs/Alcohol past 12 months The patient used cannabis occasional as well as alcohol Past Family Social History Coded Allergies: ketorolac (Unverified Allergy, Severe, SOB AND THROAT SWELLING, 08/29/17) No Active Prescriptions or Reported Meds Current Medications Medications (Trade) Dose Ordered Sig/Quinton Route Start Time Stop Time Status Last Admin (Ativan) 1 mg Q6H PRN PO 10/31/17 10:15 (Ativan Inj) 1 mg Q6H PRN IM 10/31/17 10:15 (Tylenol) 650 mg Q4H PRN PO 10/31/17 10:15 (Milk Of Magnesia Liq) 30 ml DAILY PRN PO 10/31/17 10:15 (Mag-Al Plus Susp Liq) 30 ml Q6H PRN PO 10/31/17 10:15 Miscellaneous Information 1 DAILY T-DERMAL 11/01/17 09:00 (Habitrol 21 Mg Patch.24 Hr) 1 patch DAILY T-DERMAL 11/01/17 09:00 Family Psych History No family psychiatric history Social History Patient was born and raised in [place], she lives in [place] with a roommate , she is currently a college student in [employer], she has a girlfriend, Patient's Strengths (min. 2) Family support Physical Exam No tremors, no EPS, no psychomotor agitation retardation, no catatonic symptoms Vital Signs Vital Signs Date Time Temp Pulse Resp B/P (MAP) Pulse Ox O2 Delivery O2 Flow Rate FiO2 10/31/17 12:02 97.6 82 18 108/73 (85) 99 10/31/17 04:40 Room Air Lab Results Test 10/31/17 03:05 10/31/17 03:10 White Blood Count 5.4 TH/MM3 Red Blood Count 4.59 MIL/MM3 Hemoglobin 13.3 GM/DL Hematocrit 38.9 % Mean Corpuscular Volume 84.8 FL Mean Corpuscular Hemoglobin 29.0 PG Mean Corpuscular Hemoglobin Concent 34.2 % Red Cell Distribution Width 13.2 % Platelet Count 314 TH/MM3 Mean Platelet Volume 7.8 FL Neutrophils (%) (Auto) 46.5 % Lymphocytes (%) (Auto) 42.4 % Monocytes (%) (Auto) 10.6 % Eosinophils (%) (Auto) 0.0 % Basophils (%) (Auto) 0.5 % Neutrophils # (Auto) 2.5 TH/MM3 Lymphocytes # (Auto) 2.3 TH/MM3 Monocytes # (Auto) 0.6 TH/MM3 Eosinophils # (Auto) 0.0 TH/MM3 Basophils # (Auto) 0.0 TH/MM3 CBC Comment DIFF FINAL Differential Comment Blood Urea Nitrogen 9 MG/DL Creatinine 0.74 MG/DL Random Glucose 76 MG/DL Total Protein 7.8 GM/DL Albumin 4.0 GM/DL Calcium Level 9.2 MG/DL Alkaline Phosphatase 81 U/L Aspartate Amino Transf (AST/SGOT) 11 U/L Alanine Aminotransferase (ALT/SGPT) 18 U/L Total Bilirubin 0.7 MG/DL Sodium Level 140 MEQ/L Potassium Level 3.3 MEQ/L Chloride Level 108 MEQ/L Carbon Dioxide Level 21.7 MEQ/L Anion Gap 10 MEQ/L Estimat Glomerular Filtration Rate 119 ML/MIN Thyroid Stimulating Hormone 3rd Gen 0.966 uIU/ML Salicylates Level LESS THAN 1.7 MG/DL Acetaminophen Level LESS THAN 2.0 MCG/ML Ethyl Alcohol Level LESS THAN 3 MG/DL Urine Opiates Screen NEG Urine Barbiturates Screen NEG Urine Amphetamines Screen NEG Urine Benzodiazepines Screen NEG Urine Cocaine Screen NEG Urine Cannabinoids Screen POS Mental Status Examination Appearance: Appropriate Consciousness: Alert Orientation: x4 Motor Activity: Normal gait Speech: Unremarkable Language: Adequate Fund of Knowledge: Adequate Attention and Concentration: Adequate Memory: Unremarkable Mood: Sad Affect: Irritable Thought Process & Associations: Intact Thought Content: Appropriate Hallucination Type: None Delusion Type: None Suicidal Ideation: Yes Suicidal Plan: No Suicidal Intention: No Homicidal Ideation: No Homicidal Plan: No Homicidal Intention: No Insight: Poor Judgment: Poor Assessment & Plan Problem List: (1) Adjustment disorder with depressed mood ICD Codes: F43.21 - Adjustment disorder with depressed mood Assessment & Plan: On psychiatric evaluation today the patient presents fragile , vulnerable, very tearful. She reports that since May she has been feeling depressed, with increased sense of hopelessness, helplessness, abandonment, increased sensitivity to rejection, frustration, frequent interpersonal relationship problems, mood swings, lack of motivation, suicidal thoughts in the context of his stress in college, poor communication with friends and family, but exacerbated yesterday by an argument with her girlfriend to the point that the patient wrote a suicide note and try to commit suicide by stabbing herself. The patient continues to report suicidality, no specific plan. She does not have history of hospitalizations, she has not been officially diagnosed with depression, she does have history of cannabis use disorder, Chaotic interpersonal relationships, poor coping skill, and self cutting behavior in the past. Patient has an elevated risk of danger to self and she needs to be admitted in psychiatry for stabilization and safety. Patient benefits of starting an SSRI most probably a medication for anxiety. Zoloft 25 mg vs Celexa 10 mg are being considered. Ativan 2 mg p.o. stat to help the patient to calm down. Current presentation seems to be etiologically related with a primary mood disorder, but personality disorder also could be playing an important role. Extensive support, motivation and psychoeducation provided. Transferred to 2600. Will consult psychiatry for second opinion. Assessment & Plan Estimated LOS: Nilesh Crockett MD Oct 31, 2017 14:36
[2017-10-31 18:15] VITALS: BP 120/70; PULSE 76; RESP 16; TEMP 98.6; O2SAT 97
[2017-11-01 06:08] VITALS: BP 111/59; PULSE 88; RESP 17; TEMP 98; O2SAT 99
--- NOTE | 2017-11-01 07:30 | PD.PSY.CON ---
Provisional Diagnosis Admission Date Oct 31, 2017 at 10:10 [place] I. Adjustment disorder with depressed mood vs major depressive disorder, single episode, severe, without psychosis [place] II. Unspecified personality disorder, cluster B traits identified [place] III. Sickle cell anemia [place] IV. Interpersonal conflicts with significant mother, history of self inflicting harm [place] V. 40 History of Present Illness Service Psychiatry Consult Requested By Dr. Schaeffer Reason for Consult Second opinion petition supporting Jaqueline morales Primary Care Physician No Primary Care Physician HPI The patient is a 22-year-old -[place] woman, domiciled with a roommate in [place], college student, employed in a [employer], without no previous psychiatric diagnosis, no previous suicide attempts, no previous psychiatric hospitalizations, she does have history of self cutting behavior without SI in her early adolescence, with medical history of sickle cell trait presents under [place] act initiated by the [employer]. According to her paperwork, "left a suicidal note to call her friends and family saying kristofere. Subject was later found by roommates passed out in the parking lot. Subject was found with a knife and said she was attempting to stab herself in the stomach." Patient reports that she has been depressed and feeling suicidal since June. No obvious aggravating or relieving factors. Symptoms are moderate. She denies doing anything to hurt herself but she was considering stopping herself this evening. Denies any drug or alcohol use, homicidal ideation, auditory or visual hallucinations. No other complaints at this time. EMR reviewed. Suicide note also read. no collateral available at this moment. On psychiatric evaluation today the patient seems to be quite fragile, vulnerable, profusely crying. Patient reports that she has been very depressed in the last months. She says that since May she has been struggling with sense of hopelessness, helplessness, lack of motivation, poor appetite, poor sleep, and thoughts of harming herself. She says that she has history of self harming in the past without suicidal intentions just to release stress. She says that yesterday she had an argument with her girlfriend, she found out that her girlfriend has been cheating on her and at the same time has been talking about her and against her with her friend yesterday when she found out she felt betrayed "and abandonment and I just wanted to kill myself". Patient reports that she has been stressed with school classes, with her job, she feels that her family in [place] is no very supportive with her "and rather than help me they tend to punish me and blame me for everything". She also reports that there is no strong support for the cop[place] community in [facility] "and I really felt that I wanted to yesterday". The patient is logical, coherent and relevant. A little bit oppositional and irritable. But no paranoia, no loosening of associations, no ideas of reference, are present. She is oriented 3. No fluctuation of consciousness, no attention deficit he are present. The patient reports occasional use of cannabis, denies other illicit drugs and alcohol. 11/01/2017 Above note dictated by Dr. Schaeffer reviewed and agreed with patient admitted to Dr. Schaeffer service, he has done a first opinion petition supporting Jaqueline morales patient seen by me she continues depressed with vague suicidal ideation of those some minimization today. At this time I feel patient continues to meet Jaqueline criteria thus I will cosign second opinion petition supporting Jaqueline morales Past Family Social History Coded Allergies: ketorolac (Unverified Allergy, Severe, SOB AND THROAT SWELLING, 08/29/17) No Active Prescriptions or Reported Meds Current Medications Medications (Trade) Dose Ordered Sig/[place]inton Route Start Time Stop Time Status Last Admin (Ativan) 1 mg Q6H PRN PO 10/31/17 10:15 (Ativan Inj) 1 mg Q6H PRN IM 10/31/17 10:15 (Tylenol) 650 mg Q4H PRN PO 10/31/17 10:15 (Milk Of Magnesia Liq) 30 ml DAILY PRN PO 10/31/17 10:15 (Mag-Al Plus Susp Liq) 30 ml Q6H PRN PO 10/31/17 10:15 Miscellaneous Information 1 DAILY T-DERMAL 11/01/17 09:00 (Habitrol 21 Mg Patch.24 Hr) 1 patch DAILY T-DERMAL 11/01/17 09:00 Patient's Strengths (min. 2) Family support Physical Exam Vital Signs Vital Signs Date Time Temp Pulse Resp B/P (MAP) Pulse Ox O2 Delivery O2 Flow Rate FiO2 11/01/17 06:08 98.0 88 17 111/59 (76) 99 10/31/17 04:40 Room Air Mental Status Examination Appearance: Appropriate Consciousness: Alert Orientation: x4 Motor Activity: Normal gait Speech: Unremarkable Language: Adequate Fund of Knowledge: Adequate Attention and Concentration: Adequate Memory: Unremarkable Mood: Sad Affect: Irritable Thought Process & Associations: Intact Thought Content: Appropriate Hallucination Type: None Delusion Type: None Suicidal Ideation: Yes Suicidal Plan: No Suicidal Intention: No Homicidal Ideation: No Homicidal Plan: No Homicidal Intention: No Insight: Poor Judgment: Poor Assessment & Plan Problem List: (1) Adjustment disorder with depressed mood ICD Codes: F43.21 - Adjustment disorder with depressed mood Assessment & Plan Estimated LOS: days Rip Dillon MD Nov 01, 2017 07:30
[2017-11-01] MEDS: REMOVE OLD NICOTINE PATCH T-DERMAL SCH (09:00)
[2017-11-01] MEDS ORDERED: NICOTINE 21 MG/24 HR PATCH T-DERMAL SCH (09:00)
[2017-11-01] MEDS: NICOTINE 21 MG/24 HR PATCH T-DERMAL SCH (09:00)
[2017-11-01 09:32] LABS: BICARBONATE 24.1 MEQ/L (21.0-32.0); BLOOD UREA NITROGEN 6 MG/DL (7-18); CALCIUM 9.6 MG/DL (8.5-10.1); CHLORIDE 104 MEQ/L (98-107); CHOLESTEROL 162 MG/DL (120-200); CREATININE 0.72 MG/DL (0.50-1.00); GLOMERULAR FILTRATION RATE 123 ML/MIN (>89); GLUCOSE,RANDOM 73 MG/DL (74-106); SODIUM (NA) 139 MEQ/L (136-145)
[2017-11-01 09:35] LABS: CHOLESTEROL/ HDL RATIO 1.75 RATIO; HDL CHOLESTEROL 92.5 MG/DL (40.0-60.0); LDL CHOLESTEROL 58 MG/DL (0-99); TRIGLYCERIDES 56 MG/DL (42-150)
[2017-11-01] MEDS ORDERED: hydrOXYzine HCL 50 MG TAB PO PRN (14:45)
[2017-11-01] MEDS ORDERED: ACETAMINOPHEN 325 MG TAB PO PRN (14:45)
[2017-11-01 16:51] LABS: HEMOGLOBIN A1C 4.7 % (4.3-6.0)
[2017-11-01 17:49] VITALS: BP 136/79; PULSE 78; RESP 18; TEMP 97.9; O2SAT 100
[2017-11-01] MEDS ORDERED: diphenhydrAMINE HCL 50 MG CAP PO PRN (21:00)
[2017-11-02 06:18] VITALS: BP 99/54; PULSE 78; RESP 20; TEMP 98.4; O2SAT 99
[2017-11-02] MEDS: NICOTINE 21 MG/24 HR PATCH T-DERMAL SCH (09:00)
[2017-11-02] MEDS: REMOVE OLD NICOTINE PATCH T-DERMAL SCH (09:00)
--- NOTE | 2017-11-02 15:17 | HHI.DS ---
Psychiatry Discharge Summary Inpatient Psychiatric care?: Yes Advance Directive: No Reason Not Provided: Due to Patient Condition Mental Health AdvanceDirective: No Health Care Proxy: No Admission Admission Date Oct 31, 2017 at 10:10 Admission Diagnosis: (1) Adjustment disorder with depressed mood ICD Code: F43.21 - Adjustment disorder with depressed mood Brief History The patient is a 22-year-old -[place] woman, domiciled with a roommate in [place], college student, employed in a [employer], without no previous psychiatric diagnosis, no previous suicide attempts, no previous psychiatric hospitalizations, she does have history of self cutting behavior without SI in her early adolescence, with medical history of sickle cell trait presents under Parsons act initiated by the [employer]. According to her paperwork, "left a suicidal note to call her friends and family saying goodthomase. Subject was later found by roommates passed out in the parking lot. Subject was found with a knife and said she was attempting to stab herself in the stomach." Patient reports that she has been depressed and feeling suicidal since June. No obvious aggravating or relieving factors. Symptoms are moderate. She denies doing anything to hurt herself but she was considering stopping herself this evening. Denies any drug or alcohol use, homicidal ideation, auditory or visual hallucinations. No other complaints at this time. EMR reviewed. Suicide note also read. no collateral available at this moment. On psychiatric evaluation today the patient seems to be quite fragile, vulnerable, profusely crying. Patient reports that she has been very depressed in the last months. She says that since May she has been struggling with sense of hopelessness, helplessness, lack of motivation, poor appetite, poor sleep, and thoughts of harming herself. She says that she has history of self harming in the past without suicidal intentions just to release stress. She says that yesterday she had an argument with her girlfriend, she found out that her girlfriend has been cheating on her and at the same time has been talking about her and against her with her friend yesterday when she found out she felt betrayed "and abandonment and I just wanted to kill myself". Patient reports that she has been stressed with school classes, with her job, she feels that her family in [place] is no very supportive with her "and rather than help me they tend to punish me and blame me for everything". She also reports that there is no strong support for the copeland community in [facility] "and I really felt that I wanted to yesterday". The patient is logical, coherent and relevant. A little bit oppositional and irritable. But no paranoia, no loosening of associations, no ideas of reference, are present. She is oriented 3. No fluctuation of consciousness, no attention deficit he are present. The patient reports occasional use of cannabis, denies other illicit drugs and alcohol. 11/01/2017 Above note dictated by Dr. Schaeffer reviewed and agreed with patient admitted to Dr. Schaeffer service, he has done a first opinion petition supporting Jaqueline act patient seen by me she continues depressed with vague suicidal ideation of those some minimization today. At this time I feel patient continues to meet Parsons criteria thus I will cosign second opinion petition supporting Jaqueline act Tobacco Use In Past 30 Days: No Tobacco Past 30 Days Alcohol Use: Monthly or Less Hospital Course Patient's hospital course was uneventful, she should cooperation compliance with Mrs. Copeland treatment. She remains consistent in denying suicidality homicidality voice or visions. Her affect has improved she is more reactive and smiling. She feels these 3 days and been quite helpful with her gaining some insight into herself. In retrospect she states she is happy she has not had access to her cell phone. She has had good communication with her family. At this time patient longer meets criteria for inpatient psychiatric hospitalization will lift Parsons act allow patient be discharged to herself. Referred to counseling of the community Results Blood Pressure 99 / 54 Vital Signs Date Time Temp Pulse Resp B/P (MAP) Pulse Ox O2 Delivery O2 Flow Rate FiO2 11/02/17 06:18 98.4 78 20 99/54 (69) 99 10/31/17 04:40 Room Air Laboratory Tests Test 10/31/17 03:05 10/31/17 03:10 11/01/17 08:30 Monocytes (%) (Auto) 10.6 % (0.0-8.0) Aspartate Amino Transf (AST/SGOT) 11 U/L (15-37) Potassium Level 3.3 MEQ/L (3.5-5.1) Chloride Level 108 MEQ/L (98-107) Salicylates Level LESS THAN 1.7 MG/DL Acetaminophen Level LESS THAN 2.0 MCG/ML Urine Cannabinoids Screen POS (NEG) Blood Urea Nitrogen 6 MG/DL (7-18) Random Glucose 73 MG/DL (74-106) HDL Cholesterol 92.5 MG/DL (40.0-60.0) Laboratory Results Test 11/01/17 08:30 Cholesterol Level 162 MG/DL (120-200) HDL Cholesterol 92.5 MG/DL (40.0-60.0) Hemoglobin A1c 4.7 % (4.3-6.0) LDL Cholesterol 58 MG/DL (0-99) Triglycerides Level 56 MG/DL (42-150) Summary of Procedures None done Pending results at discharge: No Medications # of Antipsychotic meds at D/C: 0 Approp Antipsych med options 1 - Minimum of three failed multiple trials of monotherapy. 2 - Documented plan to taper to monotherapy due to previous use of multiple meds OR cross-taper in progress at D/C. 3 - Documentation of augmentation of Clozapine. 4 - Justification other than those listed in allowable values 1-3, document here : Discharge Discharge Date: Nov 02, 2017 Discharge Diagnosis: (1) Adjustment disorder with depressed mood Diagnosis: Principal ICD Code: F43.21 - Adjustment disorder with depressed mood Pt Condition on Discharge: Stable Discharge Disposition: Discharge Home Discharge Instructions Diet Instructions: As Tolerated, No Restrictions Activities you can perform: Regular-No Restrictions Scheduled Appointment: Robert Whaley Appointment Date: Nov 03, 2017 Appointment Time: 7:30am Discharge Time > 30 minutes Mental Status Examination Appearance: Appropriate Consciousness: Alert Orientation: x4 Motor Activity: Normal gait Speech: Unremarkable Language: Adequate Fund of Knowledge: Adequate Attention and Concentration: Adequate Memory: Unremarkable Mood: Sad Affect: Irritable Thought Process & Associations: Intact Thought Content: Appropriate Hallucination Type: None Delusion Type: None Suicidal Ideation: Yes Suicidal Plan: No Suicidal Intention: No Homicidal Ideation: No Homicidal Plan: No Homicidal Intention: No Insight: Poor Judgment: Poor Discharge/Advance Care Plan Health Problems: (1) Adjustment disorder with depressed mood Goals to promote your health * To prevent worsening of your condition and complications * To maintain your health at the optimal level Directions to meet your goals Take your medications as prescribed Follow your dietary instruction Follow activity as directed Keep your appointments as scheduled Take your immunizations and boosters as scheduled If your symptoms worsen call your PCP, if no PCP go to Urgent Care Center or Emergency Room For 13/12 questions related to your inpatient stay or results of tests pending at discharge, please contact Dr. Rip Dillon at Smoking is Dangerous to Your Health. Avoid second hand smoking Rip Dillon MD Nov 02, 2017 15:17
== END 2017-11-02 16:45 | disposition home or self-care (01) | DRG 881 ==
LOC: NEPD 02:43 → NEDA 10:10 → H260 11:25
PROVIDERS: ADMIT Psychiatry & Neurology Psychiatry; ATTEND Psychiatry & Neurology Psychiatry
DX: F43.21 Adjustment disorder with depressed mood (principal); R45.851 Suicidal ideations; D57.3 Sickle-cell trait; F12.90 Cannabis use, unspecified, uncomplicated
CPT/HCPCS: 80048; 80053; 80061; 80307; 83036; 84443; 84703; 85025